=== PATIENT | male | born 1980 | race Caucasian/White ===

== ENCOUNTER 2016-12-25 14:47 | Emergency (ER) | payer OTHER ==
[~2016-12-25] VITALS: Ht 182.9 cm; Wt 66.6 kg
[2016-12-25] MEDS ORDERED: HYDROmorphone 2 MG/ML, 1ML ONE (15:03)
[2016-12-25] MEDS ORDERED: HYDROmorphone 1 MG/ML, 1ML IM ONE (15:30)
[2016-12-25] MEDS ORDERED: ONDANSETRON 2MG/ML, 2ML IVPush ONE (16:00)
[2016-12-25] MEDS ORDERED: LIDOCAINE GEL 2%, 5ML TP ONE (16:00)
[2016-12-25] MEDS ORDERED: SODIUM CHLORIDE FLUSH 10ML SYR IVF ONE (16:00)
[2016-12-25] MEDS ORDERED: ONDANSETRON 2MG/ML, 2ML ONE (16:02)
[2016-12-25] MEDS ORDERED: HYDROmorphone 1 MG/ML, 1ML ONE ×2 (16:02→16:30)
[2016-12-25] MEDS ORDERED: DIPH,PERTUSS(ACELL),TET VAC/PF 0.5 ML IM-VACC ONE (16:02)
[2016-12-25] MEDS ORDERED: LIDOCAINE GEL 2%, 5ML ONE (16:02)
[2016-12-25] MEDS: HYDROmorphone 1 MG/ML, 1ML IVPush PRN ×2 (16:05→16:33)
[2016-12-25] MEDS: DIPH,PERTUSS(ACELL),TET VAC/PF 0.5 ML IM-VACC ONE ×2 (16:06→16:10)
[2016-12-25] MEDS ORDERED: BACITRACIN ZINC OINT 500U/GM, 0.9 GM ONE ×2 (16:31)
[2016-12-25] MEDS ORDERED: PROMETHAZINE 25 MG/ML, 1ML ONE (17:21)
[2016-12-25] MEDS ORDERED: PROMETHAZINE 25 MG/ML, 1ML IM ONE (17:30)
[2016-12-25 17:47] VITALS: BP 132/84
== END 2016-12-25 17:49 | disposition home or self-care (01) ==
LOC: ED 17:43
DX: S52.355A Nondisplaced comminuted fracture of shaft of radius, left arm, initial encounter for closed fracture (principal); S50.812A Abrasion of left forearm, initial encounter; S80.212A Abrasion, left knee, initial encounter; W22.8XXA Striking against or struck by other objects, initial encounter; Y93.89 Activity, other specified; Y92.89 Other specified places as the place of occurrence of the external cause; Y99.8 Other external cause status
CPT/HCPCS: 29125; 73030; 73090; 96372; 96374; 96375; 99284; J1170; J2405; J2550; 90715

== ENCOUNTER 2016-12-30 10:07 | Day surgery (SDC) | payer OTHER ==
[~2016-12-30] VITALS: Ht 180.3 cm; Wt 67.6 kg
[2016-12-30] MEDS ORDERED: LACTATED RINGERS 1,000 ML IV SCH (10:46)
[2016-12-30 10:48] VITALS: BP 135/74
[2016-12-30] MEDS ORDERED: BUPIVACAINE/PF 0.5% ONE (11:55)
[2016-12-30] MEDS ORDERED: FENTANYL PF 100 MCG/2ML ONE ×3 (12:10→13:59)
[2016-12-30] MEDS ORDERED: MIDAZOLAM 1 MG/ML, 2ML ONE (12:10)
[2016-12-30] MEDS ORDERED: KETOROLAC 30 MG/1 ML ONE (12:17)
[2016-12-30] MEDS ORDERED: GLYCOPYRROLATE 0.2MG/1ML ONE (12:17)
[2016-12-30] MEDS ORDERED: PROPOFOL 10 MG/ML, 20ML ONE (12:17)
[2016-12-30] MEDS ORDERED: CEFAZOLIN 1,000 MG ONE (12:17)
[2016-12-30] MEDS ORDERED: NEOSTIGMINE 1 MG/ML, 10ML ONE (12:17)
[2016-12-30] MEDS ORDERED: DEXAMETHASONE 4 MG/ML, 1ML ONE (12:17)
[2016-12-30] MEDS ORDERED: ROCURONIUM 10 MG/ML ONE (12:17)
[2016-12-30] MEDS ORDERED: ONDANSETRON 2MG/ML, 2ML ONE (12:17)
[2016-12-30] MEDS ORDERED: BUPIVACAINE/PF 0.5% INFIL ONE (12:45)
[2016-12-30] MEDS ORDERED: HYDROmorphone 2 MG/ML, 1ML ONE ×2 (12:49→14:14)
[2016-12-30] MEDS ORDERED: LABETALOL 5MG/ML, 20ML IV PRN (13:00)
[2016-12-30] MEDS ORDERED: ACETAMINOPHEN 325 MG TABLET PO PRN (13:00)
[2016-12-30] MEDS ORDERED: EPHEDRINE 50 MG/ML, 1ML IVPush PRN (13:00)
[2016-12-30] MEDS ORDERED: OXYcodone 5 MG/5 ML ORAL.SOL UDC PO PRN (13:00)
[2016-12-30] MEDS ORDERED: PROMETHAZINE 25 MG/ML, 1ML IV PRN (13:00)
[2016-12-30] MEDS ORDERED: MIDAZOLAM 1 MG/ML, 2ML IV PRN (13:00)
[2016-12-30] MEDS ORDERED: hydrALAzine 20 MG/ML, 1ML IV PRN (13:00)
[2016-12-30] MEDS ORDERED: MEPERIDINE/PF 25MG/0.5ML IVPush PRN (13:00)
[2016-12-30] MEDS ORDERED: METOPROLOL 1 MG/ML, 5ML IV PRN (13:00)
[2016-12-30] MEDS ORDERED: ALBUTEROL SULFATE 2.5 MG/3 ML NPPB PRN (13:00)
[2016-12-30] MEDS ORDERED: HYDROcodone/APAP 7.5-325MG/15ML UDC PO PRN (13:00)
[2016-12-30] MEDS ORDERED: ONDANSETRON 2MG/ML, 2ML IVPush PRN (13:00)
[2016-12-30] MEDS ORDERED: MEPERIDINE/PF 25MG/0.5ML ONE (13:54)
[2016-12-30] MEDS ORDERED: OXYcodone 5 MG/5 ML ORAL.SOL UDC ONE ×2 (13:59→14:06)
[2016-12-30] MEDS ORDERED: ACETAMINOPHEN 650 MG/20.3 ML UDC ONE (13:59)
[2016-12-30] MEDS: FENTANYL PF 100 MCG/2ML IV PRN ×2 (14:00→14:08)
[2016-12-30] MEDS: HYDROmorphone 1 MG/ML, 1ML IV PRN ×2 (14:16→14:45)
[2016-12-30] MEDS ORDERED: BUPIVACAINE/PF 0.25% ONE (14:44)
== END 2016-12-30 17:05 ==
LOC: OR 10:07
PROVIDERS: ATTEND Orthopaedic Surgery
DX: S52.392A Other fracture of shaft of radius, left arm, initial encounter for closed fracture (principal); J45.909 Unspecified asthma, uncomplicated; X58.XXXA Exposure to other specified factors, initial encounter; Y93.89 Activity, other specified; Y92.89 Other specified places as the place of occurrence of the external cause; Y99.8 Other external cause status
CPT/HCPCS: 25515; 73090; 76000; C1713; J0690; J1100; J1170; J1885; J2175; J2250; J2405; J2704; J2710; J3010; J3490; J7120

== ENCOUNTER 2017-07-08 06:25 | Emergency (ER) | payer SELFPAY ==
[~2017-07-08] VITALS: Ht 182.9 cm; Wt 70.0 kg
[2017-07-08] MEDS ORDERED: LIDOCAINE-MPF 1%, 5ML INFIL ONE (07:00)
[2017-07-08 08:31] VITALS: BP 115/76
== END 2017-07-08 08:33 | disposition home or self-care (01) ==
LOC: ED 06:41
DX: S81.811A Laceration without foreign body, right lower leg, initial encounter (principal); F17.200 Nicotine dependence, unspecified, uncomplicated; Y93.89 Activity, other specified; Y92.098 Other place in other non-institutional residence as the place of occurrence of the external cause; Y99.8 Other external cause status; W18.39XA Other fall on same level, initial encounter
CPT/HCPCS: 13121; 13122; 99283

== ENCOUNTER 2018-02-25 13:41 | Emergency (ER) | payer OTHER ==
[~2018-02-25] VITALS: Ht 182.9 cm; Wt 69.2 kg
[2018-02-25] MEDS ORDERED: MORPHINE SULFATE 4 MG/ML, 1ML ONE ×2 (14:29→16:46)
[2018-02-25] MEDS ORDERED: SODIUM CHLORIDE FLUSH 10ML SYR IVF ONE (14:30)
[2018-02-25] MEDS: MORPHINE SULFATE 4 MG/ML, 1ML IVPush PRN ×2 (14:31→16:47)
[2018-02-25] MEDS ORDERED: ALBU10PO INH (14:43)
[2018-02-25 16:58] VITALS: BP 118/74
== END 2018-02-25 17:01 | disposition home or self-care (01) ==
LOC: ED 16:55
DX: S43.101A Unspecified dislocation of right acromioclavicular joint, initial encounter (principal); S63.502A Unspecified sprain of left wrist, initial encounter; S09.90XA Unspecified injury of head, initial encounter; J45.909 Unspecified asthma, uncomplicated; F17.200 Nicotine dependence, unspecified, uncomplicated; W19.XXXA Unspecified fall, initial encounter; Y93.89 Activity, other specified; Y92.830 Public park as the place of occurrence of the external cause; Y99.8 Other external cause status
CPT/HCPCS: 29105; 70450; 72125; 96374; 96376; 99284

== ENCOUNTER 2020-02-06 22:28 | Emergency (ER) | payer MEDICAID ==
[~2020-02-06] VITALS: Ht 182.9 cm; Wt 66.3 kg
[~2020-02-06 22:28] MED LIST: ALBU10PO INH
[2020-02-06 22:29] VITALS: BP 126/90
--- NOTE | 2020-02-06 22:39 | NUR ---
pt resting in bed, erp at bedside
--- NOTE | 2020-02-06 22:44 | NUR ---
PT HAS SEIZURE HX, TAKES KEPPRA TWICE DAILY AND HAS AN APPOINT WITH NEUROLOGIST THIS COMING WEEK
[2020-02-06] MEDS ORDERED: NEOSPORIN OINT. PKT 1 PACKET ONE ×3 (22:46→22:47)
[2020-02-06] MEDS ORDERED: IBUPROFEN 600 MG TABLET ONE (23:19)
[2020-02-06] MEDS ORDERED: IBUPROFEN 800 MG TABLET PO ONE (23:30)
== END 2020-02-06 23:25 | disposition home or self-care (01) ==
LOC: ED 22:57
DX: S52.501A Unspecified fracture of the lower end of right radius, initial encounter for closed fracture (principal); J45.909 Unspecified asthma, uncomplicated; F17.200 Nicotine dependence, unspecified, uncomplicated; W01.0XXA Fall on same level from slipping, tripping and stumbling without subsequent striking against object, initial encounter; Y93.89 Activity, other specified; Y92.89 Other specified places as the place of occurrence of the external cause; Y99.8 Other external cause status
CPT/HCPCS: 29125; 99283

== ENCOUNTER 2020-12-01 06:23 | Emergency (ER) | payer MEDICAID ==
[~2020-12-01] VITALS: Ht 180.3 cm; Wt 65.9 kg
--- NOTE | 2020-12-01 06:48 | NUR ---
Report given to MARILU Mabry
[2020-12-01] MEDS ORDERED: METHOCARBAMOL 750 MG TABLET PO ONE (07:00)
[2020-12-01] MEDS ORDERED: KETOROLAC 30 MG/1 ML IM ONE (07:00)
[2020-12-01] MEDS ORDERED: HYDROcodone/APAP 5/325 TABLET PO ONE (07:00)
[2020-12-01] MEDS ORDERED: KETOROLAC 60 MG/2 ML ONE (07:06)
[2020-12-01] MEDS ORDERED: METHOCARBAMOL 750 MG TABLET ONE (07:06)
[2020-12-01] MEDS ORDERED: HYDROcodone/APAP 5/325 TABLET ONE (07:07)
--- NOTE | 2020-12-01 07:42 | NUR ---
Pt back from imaging via [facility].
--- NOTE | 2020-12-01 08:52 | NUR ---
Pt ambulatory to bathroom.
--- NOTE | 2020-12-01 09:28 | NUR ---
Pt sleeping, respirations even and unlabored. Chart remains up for recheck.
--- NOTE | 2020-12-01 10:07 | NUR ---
Law back to bedside to update pt on POC, including plan to d/c.
[2020-12-01 10:21] VITALS: BP 123/79
== END 2020-12-01 10:23 | disposition home or self-care (01) ==
LOC: ED 08:15
DX: M76.32 Iliotibial band syndrome, left leg (principal); J45.909 Unspecified asthma, uncomplicated; F17.200 Nicotine dependence, unspecified, uncomplicated
CPT/HCPCS: 73502; 73552; 73564; 96372; 99284; J1885